=== PATIENT | female | born 1940 | race Caucasian/White ===

== ENCOUNTER 2016-09-10 10:00 | Emergency (ER) | payer OTHER, MEDICARE ==
[~2016-09-10] VITALS: Ht 162.6 cm; Wt 68.9 kg
[~2016-09-10 10:00] MED LIST: CHILDREN'S ASPI81 M1 PO; CIPROFLOXACIN250 M2 PO; CO Q-10100 MG PO; CRESTOR10 M1 PO; DAILY MULTIPLE1 EACH PO; FLOMAX0.4 MG PO; TRAMADOL50 MG PO; VITAMIN D31000 UNI2 PO
--- NOTE | 2016-09-10 10:22 | ED GI/GU/ABDOMINAL COMPLAINT ---
History of Present Illness General Chief Complaint: Abdominal Pain/Flank Pain Stated Complaint: RLQ PAIN Source: patient Exam Limitations: no limitations Vital Signs & Intake/Output Vital Signs & Intake/Output Vital Signs Date Time Temp Pulse Resp B/P B/P Pulse O2 O2 Flow FiO2 Mean Ox Delivery Rate 09/10 1334 97.7 73 20 118/65 98 Room Air 09/10 1006 97.2 86 16 131/76 97 Room Air Allergies Coded Allergies: NO KNOWN ALLERGIES (09/06/13) Reconcile Medications Aspirin (Children's Aspirin) 81 MG TAB.CHEW 1 TAB PO DAILY HEART HEALTH ( Reported) Cholecalciferol (Vitamin D3) 1,000 UNIT TABLET 1 TAB PO DAILY VITAMIN SUPPORT (Reported) Multivitamin (Daily Multiple Vitamin) 1 EACH TABLET 1 TAB PO DAILY VITAMIN SUPPORT (Reported) Rosuvastatin Calcium (Crestor) 10 MG TABLET 1 TAB PO Tuesday CHOLESTEROL (Reported) Ubidecarenone (Co Q-10) 100 MG CAPSULE 1 CAP PO DAILY SUPPLEMENT (Reported) Triage Note: PT C/O RLQ PAIN NON RADIATING X1 WEEK. HAS A HX OF KIDNEY STONES. DENIES ANY URINARY S/S. STATES LAST NIGHT SHE HAD DIFFICULTY STANDING ON HER RIGHT LEG. DENIES ANY N/V. PCP REFERRED PT TO COME TO THE ED. Triage Nurses Notes Reviewed? yes ? N Is pt currently ? No Onset: Gradual Duration: day(s): (2) Timing: remote history Quality/Severity: sharpness Severity Numbers: 5 Location: right flank Radiation: no radiation Activities at Onset: none Prior Abdominal Problems: similar symptoms Past Sexual History: Unobtainable at this time HPI: Patient is a 76-year-old female presenting to the emergency department with chief complaint of right flank and right lower quadrant pain at [place] going on intermittently for the past 2 days. Denies any nausea or vomiting. She does report urinary frequency since 2 days. No hematuria. History of kidney stones in the past and this feels similar. Pain last night was 10 out of 10. After walking around for a while it went away. Came back this morning. She called the primary care physician and they recommended she come into the emergency department for evaluation. Denies taking anything for pain prior to arrival. Symptoms currently 3 out of 10. (CHANO ORR,DENZEL) Past History Travel History Traveled to [place] past 21 day No Medical History Any Pertinent Medical History? see below for history Respiratory: emphysema Surgical History Surgical History: non-contributory Psychosocial History What is your primary language Lao Tobacco Use: Quit >30 days ago Family History Hx Contributory? No (DENZEL LOPEZ) Review of Systems Review of Systems Constitutional: Reports: no symptoms. Comments Review of systems: See HPI, All other systems negative. Constitutional, no chills fever or weight loss HEENT: No visual changes no sore throat no congestion Cardiovascular: No chest pain ,palpitation Skin, no jaundice no rashes Respiratory: No dyspnea cough sputum or hemoptysis GI: No nausea no vomiting : No dysuria No hematuria Muscle skeletal: no back pain, no neck pain, Neurologic: No numbness no confusion NO MCKOY Psych: No stress anxiety Immunology: No splenectomy or history of AIDS (DENZEL LOPEZ) Physical Exam Physical Exam General Appearance: well developed/nourished, no apparent distress, alert, awake Gastrointestinal: normal bowel sounds, soft, non-tender Comments: Well-developed well-nourished person in no acute distress HEENT: Pupils equally round and reactive to light and accommodation. Nose is atraumatic. Neck: Normal inspection Back: Nontender, no CVA tenderness. Cardiovascular: Regular rate and rhythms no murmurs rubs or gallops, normal JVP Respiratory: Chest nontender. No respiratory distress.breath sounds clear to auscultation bilaterally Abdomen: Soft, nontender nondistended, no appreciable organomegaly. Normal bowel sounds. No ascites, no rebound or guarding Extremity: No edema Neuro: Alert oriented x3 Skin: No appreciable rash on exposed skin, skin is warm and dry. Psych: Mood and affect is normal, memory and judgment is normal. Core Measures ACS in differential dx? No Severe Sepsis Present: No Septic Shock Present: No (DENZEL LOPEZ) Progress Differential Diagnosis: appendicitis, cholecystitis, gastritis, hepatitis, hernia, kidney stone, ovarian cyst, UTI/pyelo Plan of Care: Orders Procedure Date/time Status URINALYSIS 09/10 1009 Complete C-REACTIVE PROTEIN 09/10 1009 Complete COMPREHENSIVE METABOLIC PANEL 09/10 1009 Complete CBC WITHOUT DIFFERENTIAL 09/10 1009 Complete Laboratory Tests 09/10/16 1110: Urine Color YEL, Urine Clarity CLEAR, Urine pH 6.5, Ur Specific [place] <= 1.000 L, Urine Protein NEG, Urine Ketones NEG, Urine Nitrite NEG, Urine Bilirubin NEG , Urine Urobilinogen 0.2, Ur Leukocyte Esterase SMALL H, Ur Microscopic SEDIMENT EXAMINED, Urine RBC RARE, Urine WBC RARE, Ur Epithelial Cells FEW, Urine Hemoglobin NEG, Urine Glucose NEG 09/10/16 1027: Anion Gap 9, Estimated GFR > 60, BUN/Creatinine Ratio 30.0 H, Glucose 108 H, Calcium 9.7, Total Bilirubin 0.7, AST 32, ALT 45, Alkaline Phosphatase 56, C- Reactive Prot, Quant < 0.5, Total Protein 6.3, Albumin 4.2, Globulin 2.1, Albumin/Globulin Ratio 2.0, CBC w Diff NO MAN DIFF REQ, RBC 4.68, MCV 93.0, MCH 30.7, RDW 13.5, MPV 8.3, Gran % 63.0, Lymphocytes % 26.4, Monocytes % 8.4, Eosinophils % 1.8, Basophils % 0.4, Absolute Granulocytes 4.6, Absolute Lymphocytes 1.9, Absolute Monocytes 0.6, Absolute Eosinophils 0.1, Absolute Basophils 0, PUBS MCHC 33.0 Diagnostic Imaging: Viewed by Me: CT Scan. Discussed w/RAD: CT Scan. Radiology Impression: NO EVIDENCE OF URETERAL STONE OR SECONDARY SIGNS OF RECENT STONE PASSAGE, WHERE SHE KIDNEY, RIGHT SIDED NONOBSTRUCTING RENAL COLIC, 3. nO STRANDINGS. Initial ED EKG: none Comments: Patient declined pain medication and will. We will continue to monitor patient. Patient will go for CT scan rule out kidney stone versus appendicitis. Patient informed of all laboratory results. No elevated white blood cell count. CRP is negative. Urine does not show any hemoglobin. CT scan is unremarkable. Patient will be discharged home and follow up with PCP. Discussed with Dr. Jerez and he agrees with plan. (DENZEL LOPEZ) Departure Departure Time of Disposition: 1401 Disposition: HOME OR SELF CARE Condition: Stable Clinical Impression Primary Impression: Flank pain Secondary Impressions: Nephrolithiasis Referrals: CHRIS MORRISON MD (PCP/Family) Additional Instructions: Follow-up with your primary care physician call TO MAKE appointment. Increase fluids. Take Motrin and Tylenol [id number] as directed for any pain. Return for worsening symptoms or concerns. Departure Forms: Customer Survey General Discharge Information (AURELIANO LOPEZA) PA/CARGO SURVEYOR Co-Sign Statement Statement: ED Attending supervision documentation- [x] I saw and evaluated the patient. I have also reviewed all the pertinent lab results and diagnostic results. I agree with the findings and the plan of care as documented in the PA's/CARGO SURVEYOR's documentation. [] I have reviewed the ED Record and agree with the PA's/CARGO SURVEYOR's documentation. [] Additions or exceptions (if any) to the PAs/CARGO SURVEYOR's note and plan are summarized below: [] (TISHA GUILLORY,AMY Hunt)
[2016-09-10 10:44] LABS: ABSOLUTE BASOPHIL COUNT 0 /CUMM (0.0-0.2); ABSOLUTE EOSINOPHIL COUNT 0.1 /CUMM (0.0-0.7); ABSOLUTE GRANULOCYTE CT 4.6 /CUMM (1.4-6.5); ABSOLUTE LYMPH COUNT 1.9 /CUMM (1.2-3.4); ABSOLUTE MONOCYTE COUNT 0.6 /CUMM (0.10-0.60); BASOPHIL % 0.4 % (0.0-2.0); EOSINOPHIL % 1.8 % (0-5); HEMATOCRIT 43.5 % (37-47); MEAN CORPUSCULAR HGB 30.7 PG (27.0-31.0); MEAN PLATELET VOLUME 8.3 FL (7.4-10.4); PLATELET COUNT 212 /CUMM (130-400); RBC DISTRIBUTION WIDTH 13.5 % (11.5-14.5); RED BLOOD CELL CT 4.68 /CUMM (4.20-5.40); WHITE BLOOD CELL COUNT 7.4 /CUMM (4.8-10.8)
[2016-09-10 13:34] VITALS: BP 118/65
== END 2016-09-10 14:10 ==
LOC: ERH 10:00
PROVIDERS: Physician Assistant
DX: N20.0 Calculus of kidney (principal)
CPT/HCPCS: 81001; 96360